=== PATIENT | male | born 1945 | race Caucasian/White ===

== ENCOUNTER → 2023-09-01 11:47 | Outpatient (REF) | payer OTHER, SELFPAY | LOC: MRI 3T 11:47 | PROVIDERS: ATTENDING PHYSICIAN Urology; FAMILY PHYSICIAN Family Medicine; REFERRING PHYSICIAN Radiology Diagnostic Radiology | DX: N40.1 Benign prostatic hyperplasia with lower urinary tract symptoms (principal); N40.2 Nodular prostate without lower urinary tract symptoms; Z13.5 Encounter for screening for eye and ear disorders | CPT/HCPCS: 70030; 72197; A9575 ==

== ENCOUNTER → 2023-10-30 10:47 | Outpatient (REF) | payer OTHER, SELFPAY | LOC: PET 10:47 | PROVIDERS: ATTENDING PHYSICIAN Urology | DX: C61 Malignant neoplasm of prostate (principal) | CPT/HCPCS: 78815 ==

== ENCOUNTER 2024-02-22 15:45 | Outpatient (RCR) | payer OTHER, SELFPAY ==
[2024-02-22 10:20] LABS: % Basophils 0.9 % (0-2); % Eosinophils 7.2 % (0-6); % Immature Granulocytes 0.5 % (0-0.5); % Lymphocytes 24.7 % (20.5-51.1); % Monocytes 11.8 % (1.7-9.3); % Neutrophils 54.9 % (42.2-75.2); Absolute Eosinophils 0.3 10^3/uL (0-0.7); Absolute Lymphocytes 1.1 10^3/uL (1.2-3.4); Absolute Monocytes 0.5 10^3/uL (0.1-0.6); Absolute Neutrophils 2.4 10^3/uL (1.4-6.5); Hematocrit 36.9 % (39.0-52.0); Mean Corp Hgb Conc. 35.2 g/dL (33.0-37.0); Mean Corpuscular Volume 96.6 fL (80.0-94.0); Mean Platelet Volume 10.3 fL (7.4-10.4); Nucleated Red Blood Cells % 0 % (-); Platelet Count 155 10^3/uL (130-400); Red Blood Cell Count 3.82 10^6/uL (4.70-6.10); Red Cell Dist. Width 13.2 % (11.5-14.5); White Blood Cell Count 4.3 10^3/uL (4.8-10.8)
[2024-02-22 10:34] LABS: ALT (SGPT) 216 U/L (0-50); AST (SGOT) 156 U/L (17-59); Albumin 3.6 g/dl (3.5-5.0); Alkaline Phosphatase 98 U/L (38-126); Blood Urea Nitrogen 12 mg/dl (9-20); Calcium 9.5 mg/dl (8.4-10.2); Carbon Dioxide 28 mmol/L (22-30); Chloride 103 mmol/L (98-107); Glucose 112 mg/dl (70-99); Sodium 137 mmol/L (135-145); Total Bilirubin 1.2 mg/dl (0.2-1.3); Total Protein 6.2 g/dl (6.3-8.2); eGFR > 60.00
== END 2024-02-24 23:59 | disposition home or self-care (01) ==
LOC: OID 15:45
PROVIDERS: ATTENDING PHYSICIAN Internal Medicine Hematology & Oncology
DX: C61 Malignant neoplasm of prostate (principal); C77.2 Secondary and unspecified malignant neoplasm of intra-abdominal lymph nodes
CPT/HCPCS: 80053; 85025